=== PATIENT | female | born 2000 | race African-American/Black ===

== ENCOUNTER 2019-01-03 02:43 | Emergency (ER) | payer MEDICAID ==
[~2019-01-03] VITALS: Ht 165.1 cm; Wt 57.2 kg
[2019-01-03] MEDS ORDERED: TETANUS, DIPHTHERIA, PERTUSSIS VAC/PF 0.5ML (>7YR OLD) IM ONE (04:30)
[2019-01-03] MEDS ORDERED: IBUPROFEN 600MG TABLET PO ONE (04:30)
[2019-01-03 06:02] VITALS: BP 124/65
== END 2019-01-03 08:40 | disposition home or self-care (01) ==
LOC: ER 02:43
DX: S41.132A Puncture wound without foreign body of left upper arm, initial encounter (principal); F12.10 Cannabis abuse, uncomplicated; W31.1XXA Contact with metalworking machines, initial encounter; Y93.01 Activity, walking, marching and hiking; Y92.009 Unspecified place in unspecified non-institutional (private) residence as the place of occurrence of the external cause; Y99.8 Other external cause status
CPT/HCPCS: 12001; 90471; 90715; 99283; Z7610

== ENCOUNTER 2020-06-15 15:32 | Emergency (ER) | payer MEDICAID ==
[~2020-06-15] VITALS: Ht 162.6 cm; Wt 65.0 kg
[2020-06-15] MEDS ORDERED: ACETAMINOPHEN 325MG TABLET PO ONE (19:45)
[2020-06-15 19:46] VITALS: BP 139/92
== END 2020-06-15 19:47 | disposition home or self-care (01) ==
LOC: ER 15:32
DX: S60.418A Abrasion of other finger, initial encounter (principal); F12.10 Cannabis abuse, uncomplicated; W22.8XXA Striking against or struck by other objects, initial encounter; Y93.89 Activity, other specified; Y92.018 Other place in single-family (private) house as the place of occurrence of the external cause
CPT/HCPCS: 73120; 99283

== ENCOUNTER 2022-04-27 16:17 | Emergency (ER) | payer MEDICAID, OTHER ==
[~2022-04-27] VITALS: Ht 167.6 cm; Wt 65.0 kg
[2022-04-27 16:28] VITALS: BP 125/87
== END 2022-04-27 21:27 | disposition left against medical advice (07) ==
LOC: ER 16:17
DX: S00.31XA Abrasion of nose, initial encounter (principal); S80.211A Abrasion, right knee, initial encounter; F12.10 Cannabis abuse, uncomplicated; Y08.89XA Assault by other specified means, initial encounter; Y07.499 Other family member, perpetrator of maltreatment and neglect; Y93.89 Activity, other specified; Y92.018 Other place in single-family (private) house as the place of occurrence of the external cause
CPT/HCPCS: 73130; 81025; 99283